=== PATIENT | female | born 1965 | race African-American/Black ===

== ENCOUNTER 2018-05-11 23:52 | Emergency (ER) | payer MEDICARE, OTHER ==
[~2018-05-11] VITALS: Ht 167.6 cm; Wt 102.3 kg
[~2018-05-11 23:52] MED LIST: CLOT30CR24 TOP; DENIES
[2018-05-11 23:57] VITALS: Ht 167.6 cm; Wt 102.3 kg
--- NOTE | 2018-05-12 04:17 | PSY ---
Date/Time of Note Date/Time of Note DATE: 05/12/18 TIME: 04:03 Psychiatric Subjective Eval Consent Pt consented to telemedicine: Yes Subjective Evaluation Patient location: emergency Chief Complaint: BIB RA81,from [facility],depression,anxiety,SOB,denies SI/HI Medical history Problems Medical Problems: (1) Patient left without being seen Status: Acute (2) Proc/trtmt not crd out d/t pt lv bef seen by [facility] care prov Status: Acute (3) Tinea Status: Acute Allergies: Coded Allergies: No Known Drug Allergies (Verified Allergy, Mild, 02/02/12) Assessment and Plan Recommendation/Plan Discharge Disposition: Community (home) Legal Status: Voluntary Assessment Additional comments: IDENTIFYING INFORMATION: 52 year old Female patient who is currently located at the hospital and for whom psychiatric consultation was requested. SOURCES OF INFORMATION: The patient who appears to be reliable and the medical records; the nursing staff. Nancy, [facility] and board design engineer, was called [phone] at 4:10 am x2. there was no response. CHIEF COMPLAINT: "anxiety". HISTORY OF PRESENT ILLNESS: The patient was interviewed via telemedicine in the presence of and under the supervision of nursing staff of the hospital. The consent to conducting this interview via telemedicine was obtained by the nursing staff at the hospital. AGUSTIN Bakrer reports that the patient presented with depressed mood, anxiety, SOB. Presents with SOB and anxiety. The patient reports having depressed at times, partial anhedonia. The patient reports that she sleeps a lot because she is being overmedicated. The patient denies having insomnia, low appetite, SI, HI, delusions, AH, VH. The patient denies using alcohol heavily or regularly. The patient denies using any other substances. In terms of past psychiatric history, the patient reports having a history of past psychiatric hospitalizations . The patient reports having a history of no past suicide attempts. Sees a psychiatrist, but does not remember his name. PAST MEDICAL HISTORY: none. CURRENT MEDICATIONS: depakote, haldol, cogentin- unknown medication dosages. ALLERGIES TO MEDICATIONS: NKDA. LABORATORY TESTS: pending. SOCIAL HISTORY: lives at [facility], 2 kids, single, on disability, no access to firearms. REVIEW OF SYSTEMS: Constitutional (e.g., fever, weight loss): negative; Eyes, Ears, Nose, Mouth, Throat: negative; Cardiovascular: negative; Respiratory: negative; Gastrointestinal: negative; Genitourinary: negative; Musculoskeletal: negative; Integumentary (skin and/or breast): negative; Neurological: negative; Psychiatric: as per HPI; Endocrine: negative; Hematologic/Lymphatic: negative; Allergic/Immunologic: negative. MENTAL STATUS EXAMINATION: General Appearance and Behavior: Calm, cooperative with the interview, pleasant with the current interviewer, makes good eye contact, well-groomed, no abnormal movements noted. Speech: Regular rate, regular rhythm, normal latency, normal volume, normal amount. Flow of thought: sequential, logical, goal-directed. Content of thought: no auditory hallucinations, no visual hallucinations, no delusions, no suicidal ideation; the patient is future-oriented, no homicidal ideation. Mood: "okay" Affect: mildly dysthymic, somewhat restricted range. Attention: normal based on the interview. Insight: good. Judgment: good. Memory: normal based on the interview. Sensorium: alert and oriented to person, place and date. ASSESSMENT: The patient's presentation and history are consistent with the diagnosis of unspecified psychotic disorder. the patient presents with anxiety and shortness of breath. She is feeling better now in terms of anxiety. the patient likely suffers from a chronic psychotic disorder. She has been compliant with her medications lately and does not appear to be experiencing an exacerbation of psychosis. the patient is not in a major depressive episode at this time. No evidence of nara, hypomania on exam. PLAN: - Medication management: Would continue all medications for now. The patient has an outpatient psychiatrist who she sees regularly. Unfortunately I was unable to obtain a home medication list with the dosages included. I attempted to call your board and care to obtain such a lisp but no one is answering at this time. - Labs: Please check Alcohol level, UDS, Depakote level. please call back with a Depakote level to to evaluate the possibility for medication adjustments. - Psychotherapy: Provided supportive psychotherapy and psychoeducation. - social work: please request from social work to call the patient's residence to ensure the patient is at a safe living environment and to obtain collateral information regarding the patient's mental health state. - Disposition: If the patient's alcohol level is above the legal limit, then please reconsult psychiatry to determine disposition once the patient's alcohol level is below the legal limit. If the patient's alcohol level comes back below the legal limit, then the patient is appropriate for the outpatient level of care at this time from a psyc hiatric perspective. The patient is not an imminent danger to self or others. The patient is motivated for outpatient treatment. The patient agrees to be compliant with outpatient follow-up appointments and pharmacotherapy as indicated. Would recommend that the patient follows up with a psychiatrist. Resources for outpatient follow-up will be provided by the hospital staff. The patient's risk for completed suicide is moderate in comparison to the general population. Risk factors include marital status, psychotic disorder, fair social support. Protective factors include race, gender, age,absence of substance use disorder, bipolar disorder, major depressive disorder, anxiety disorder, personality disorder, no access to firearms, no history of past suicide attempts, no major chronic medical problems, access to care. The patient's risk for completed suicide cannot be modified more effectively with inpatient admission at this time. The patient is not an imminent danger to self or others at this time and does not meet the legal criteria for involuntary admission. Risks, benefits, alternatives were discussed and the patient provided informed consent to proceed with the above plan. Discussed about the above plan with Dr. Ott. ROBERTO HOWELL MD May 12, 2018 04:13
[2018-05-12 04:20] VITALS: BP 149/92; PULSE 96; RESP 18
--- NOTE | 2018-05-12 04:28 | ERD ---
ER Documentation Chief Complaint Chief Complaint BIB RA81,from B&C,depression,anxiety,SOB,denies SI/HI HPI Is a 52-year-old female brought in from [facility] with complaints of depression and anxiety. She denies suicidal homicidal ideation. She denies auditory or visual hallucinations. She denies any other current complaints. She said she is been very very anxious and depressed lately. She is on medication for this but does not remember the names of the doses. ROS All systems reviewed and are negative except as per history of present illness. Medications Home Meds Active Scripts Clotrimazole* (Clotrimazole* AF) 1% - 30 Gm Cream.gm., 1 APPLIC TOP BID for 7 Days, TUB Prov:MANOHAR BASS PA-C 05/15/15 Reported Medications [Denies] No Conflict Check 01/04/11 Allergies Allergies: Coded Allergies: No Known Drug Allergies (Verified Allergy, Mild, 02/02/12) PMhx/Soc History of Surgery: No Anesthesia Reaction: No Hx Neurological Disorder: No Hx Respiratory Disorders: No Hx Cardiac Disorders: No Hx Psychiatric Problems: No Hx Miscellaneous Medical Probl: No Hx Alcohol Use: No Hx Substance Use: No Hx Tobacco Use: No Physical Exam Vitals Vital Signs Date Temp Pulse Resp B/P (MAP) Pulse Ox O2 O2 Flow FiO2 Time Delivery Rate 05/11/18 98.0 95 18 126/76 94 23:57 (93) Physical Exam Const: No acute distress Head: Atraumatic Eyes: Normal Conjunctiva ENT: Normal External Ears, Nose and Mouth. Neck: Full range of motion. No meningismus. Resp: Clear to auscultation bilaterally Cardio: Regular rate and rhythm, no murmurs Abd: Soft, non tender, non distended. Normal bowel sounds Skin: No petechiae or rashes Back: No midline or flank tenderness Ext: No cyanosis, or edema Neur: Awake and alert Psych: Normal Mood and Affect Procedures/MDM Emergency department course: Patient seen and evaluated triage was placed in bed from evaluation was evaluated by telemetry psychiatry. Medical decision making: Patient's behavioral symptoms have stabilized while in the department. Patient is medically cleared and appropriate for psychiatric evaluation and work up. No e/o neurologic, toxic, infectious, or metabolic cause. Found to be stable for outpatient management by telemetry psychiatry which I agree with. Patient will be discharged home to follow-up with primary care physician. Departure Diagnosis: Primary Impression: Depression Depression Type: unspecified Qualified Codes: F32.9 - Major depressive disorder, single episode, unspecified Condition: Stable Patient Instructions: Depression UBALDO RILEY May 12, 2018 04:28
== END 2018-05-12 04:30 | disposition home or self-care (01) ==
LOC: E/R 23:52
DX: F32.9 Major depressive disorder, single episode, unspecified (principal)
CPT/HCPCS: 36415; 80053; 80307; 81003; 84703; 85025; 99283

== ENCOUNTER 2018-06-15 16:36 | Emergency (ER) | payer MEDICARE, OTHER ==
[~2018-06-15] VITALS: Ht 167.6 cm; Wt 114.8 kg
[2018-06-15 16:38] VITALS: Ht 167.6 cm; Wt 114.8 kg
[2018-06-15] MEDS ORDERED: IBUP-1542 PO (17:36)
[2018-06-15] MEDS ORDERED: ALPR2TAB PO (17:36)
[2018-06-15] MEDS ORDERED: DIVA-48 PO (17:37)
[2018-06-15] MEDS ORDERED: HALO5TAB23 PO (18:00)
[2018-06-15] MEDS ORDERED: PALI234D IM (18:02)
[2018-06-15] MEDS ORDERED: APIXABAN 5 MG TABLET PO ONE (18:30)
[2018-06-15] MEDS ORDERED: RIVAROXABAN 20 MG TABLET PO ONE (18:30)
[2018-06-15] MEDS ORDERED: APIX5TAB PO (18:31)
--- NOTE | 2018-06-15 18:33 | ERD ---
ER Documentation Chief Complaint Chief Complaint Sent by Clinic to "confirm there is a blood clot in right leg" HPI This is a 52-year-old female who went to an urgent care 5 days ago. She was found to have a DVT on an ultrasound that was done 5 days ago they just told her the report today. She had some swelling in the calf with pain and she was told to go to the ER. She is not having any shortness of breath or chest pain. ROS All systems reviewed and are negative except as per history of present illness. Medications Home Meds Active Scripts Apixaban* (Eliquis*) 5 Mg Tablet, 10 MG PO BID for 7 Days, #74 TAB 1 Refill After 7 days, is 5 mg (1 tablet) po BID Prov:RODOLFO KESSLER DO 06/15/18 Reported Medications Paliperidone Palmitate (Invega Sustenna) 234 Mg/1.5 Ml Disp.syrin, 234 MG IM ONCE, SYR 06/15/18 Haloperidol* (Haldol*) 5 Mg Tab, 5 MG PO DAILY, TAB 06/15/18 Divalproex Sodium* (Depakote*) 500 Mg Tablet.dr, 1000 MG PO QHS, #120 TAB 06/15/18 Alprazolam* (Xanax*) 2 Mg Tablet, 2 MG PO BID PRN for ANXIETY, TAB 06/15/18 Ibuprofen* (Ibuprofen*) 600 Mg Tablet, 600 MG PO NEEDED, TAB 06/15/18 Discontinued Reported Medications [Denies] No Conflict Check 01/04/11 Discontinued Scripts Clotrimazole* (Clotrimazole* AF) 1% - 30 Gm Cream.gm., 1 APPLIC TOP BID for 7 Days, TUB Prov:MANOHAR BASS PA-C 05/15/15 Allergies Allergies: Coded Allergies: No Known Drug Allergies (Verified Allergy, Mild, 06/15/18) PMhx/Soc History of Surgery: No Anesthesia Reaction: No Hx Neurological Disorder: No Hx Respiratory Disorders: No Hx Cardiac Disorders: No Hx Psychiatric Problems: Yes (depression, anxiety, BiPolar/pschizophrenia) Hx Miscellaneous Medical Probl: No Hx Alcohol Use: No Hx Substance Use: No Hx Tobacco Use: No Smoking Status: Never smoker FmHx Family History: No coronary disease Physical Exam Vitals Vital Signs Date Temp Pulse Resp B/P (MAP) Pulse Ox O2 O2 Flow FiO2 Time Delivery Rate 06/15/18 97.9 81 18 160/98 97 16:38 (118) Physical Exam Const: Well-developed, well-nourished Head: Atraumatic, normocephalic Eyes: Normal Conjunctiva, PERRLA, EOMI, normal sclera, no nystagmus ENT: Normal External Ears, Nose and Mouth, moist mucus membranes. Neck: Full range of motion. No meningismus, no lymphadenopathy. Resp: Clear to auscultation bilaterally, no wheezing, rhonchi, rales Cardio: Regular rate and rhythm, no murmurs, S1 S2 present Abd: Soft, non tender x 4, non distended. Normal bowel sounds, no guarding or rebound, no pulsitile abdominal masses or bruits Skin: No petechiae or rashes, no ecchymosis , no maculopapular rash Back: No midline or flank tenderness Ext: No cyanosis, or edema, FROM x 4, normal inspection, neurovascularly intact x 4 some mild swelling behind the right knee and calf that is tender Neur: Awake and alert, STR 5/5 x 4, sensation intact x 4, no focal findings, cerebellum intact Psych: Normal Mood and Affect Results 24 hrs Current Medications Medications Dose Sig/Jose Start Time Status Last (Trade) Ordered Route PRN Stop Time Admin Dose Reason Admin Rivaroxaban 20 mg ONCE ONCE 06/15/18 Cancel (Xarelto) PO 18:30 06/15/18 18:31 Apixaban 10 mg ONCE ONCE 06/15/18 DC (Eliquis) PO 18:30 06/15/18 18:31 Procedures/MDM MR #: [id number] DOS: 06/15/18 1652 Ordering MD: RODOLFO KESSLER DO Location: E/R Room/Bed: PROCEDURE: US Lower extremity Venous. CLINICAL INDICATION: Right lower extremity swelling. Deep venous thrombosis. TECHNIQUE: Multiple sonographic images of the right lower extremity deep venous system were obtained utilizing grayscale, color-flow, compressive sonography and doppler imaging with augmentation. The images were reviewed on a PACS workstation. COMPARISON: None. FINDINGS: There is normal compressibility and flow within the right common femoral, deep femoral, and superficial femoral veins. There is occlusive thrombus in the popliteal vein.. The deep veins of the calf were incompletely visualized. IMPRESSION: Acute occlusive deep venous thrombosis right popliteal vein. .Ar Bender MD, Date Time Electronically viewed and signed by .Ar Bender MD, on 06/15/2018 17:13 .A/ CC: RODOLFO KESSLER DO [id number] Patient has DVT and we will give her a dose of Eliquis here and discharge her home with Eliquis prescription and follow-up with her primary Departure Diagnosis: Primary Impression: DVT (deep vein thrombosis) in Condition: Stable Patient Instructions: Dvt RODOLFO KESSLER DO Jun 15, 2018 18:33
[2018-06-15 18:50] VITALS: BP 118/60; PULSE 75; RESP 16
== END 2018-06-15 18:51 | disposition home or self-care (01) ==
LOC: E/R 16:36
DX: I82.409 Acute embolism and thrombosis of unspecified deep veins of unspecified lower extremity (principal)
CPT/HCPCS: 93971

== ENCOUNTER 2018-07-19 10:45 | Emergency (ER) | payer MEDICARE, OTHER ==
[~2018-07-19] VITALS: Ht 167.6 cm; Wt 118.6 kg
[~2018-07-19 10:45] MED LIST changes: +ALPR2TAB PO; +APIX5TAB PO; -CLOT30CR24 TOP; -DENIES; +DIVA-48 PO; +HALO5TAB23 PO; +IBUP-1542 PO; +PALI234D IM
[2018-07-19 10:56] VITALS: Ht 167.6 cm; Wt 118.6 kg
[2018-07-19] MEDS ORDERED: DOCU-144 PO (13:59)
[2018-07-19] MEDS ORDERED: FER325 PO (13:59)
[2018-07-19] MEDS ORDERED: MEDR10TA2 PO (14:00)
[2018-07-19 14:12] VITALS: BP 142/80; PULSE 90; RESP 18
--- NOTE | 2018-07-19 14:25 | ERD ---
ER Documentation Chief Complaint Chief Complaint vag bleed x 1 week HPI Patient is a 52-year-old female with past medical history of right lower extremity DVT, currently on Eliquis, depression, anxiety, bipolar/schizophrenia, who presents the ER for concerns of vaginal bleeding x1 week. Patient states "my period is overflowing". Patient reports using 4-5 pads per day. Patient denies any blood clot passage. Patient denies any lightheadedness or dizziness. Patient denies any fevers or chills. Patient states she does not have an QUILLER HAND. Patient states her primary care physician is on [employer] and denies however she does not recall the name of her doctor. Patient states his doctor is managing her Eliquis. Patient denies any abdominal pain, chest pain, shortness of breath or LOC. ROS All systems reviewed and are negative except as per history of present illness. Medications Home Meds Active Scripts Medroxyprogesterone Acetate* (Provera*) 10 Mg Tablet, 10 MG PO DAILY, #5 TAB Prov:OMER BARRERA PA-C 07/19/18 Docusate Sodium* (Colace*) 100 Mg Capsule, 100 MG PO BID, #30 CAP Prov:OMER BARRERA PA-C 07/19/18 Ferrous Sulfate* (Ferrous Sulfate*) 325 Mg Tabec, 325 MG PO BID, #30 TAB Prov:OMER BARRERA PA-C 07/19/18 Apixaban* (Eliquis*) 5 Mg Tablet, 10 MG PO BID for 7 Days, #74 TAB 1 Refill After 7 days, is 5 mg (1 tablet) po BID Prov:RODOLFO KESSLER DO 06/15/18 Reported Medications Paliperidone Palmitate (Invega Sustenna) 234 Mg/1.5 Ml Disp.syrin, 234 MG IM ONCE, SYR 06/15/18 Haloperidol* (Haldol*) 5 Mg Tab, 5 MG PO DAILY, TAB 06/15/18 Divalproex Sodium* (Depakote*) 500 Mg Tablet.dr, 1000 MG PO QHS, #120 TAB 06/15/18 Alprazolam* (Xanax*) 2 Mg Tablet, 2 MG PO BID PRN for ANXIETY, TAB 06/15/18 Ibuprofen* (Ibuprofen*) 600 Mg Tablet, 600 MG PO NEEDED, TAB 06/15/18 Allergies Allergies: Coded Allergies: No Known Drug Allergies (Verified Allergy, Mild, 06/15/18) PMhx/Soc Medical and Surgical Hx: pt denies Surgical Hx History of Surgery: No Anesthesia Reaction: No Hx Neurological Disorder: No Hx Respiratory Disorders: No Hx Cardiac Disorders: No Hx Psychiatric Problems: Yes (depression, anxiety, BiPolar/pschizophrenia) Hx Miscellaneous Medical Probl: No Hx Alcohol Use: No Hx Substance Use: No Hx Tobacco Use: No Smoking Status: Never smoker FmHx Family History: No diabetes Physical Exam Vitals Vital Signs Date Temp Pulse Resp B/P (MAP) Pulse Ox O2 O2 Flow FiO2 Time Delivery Rate 07/19/18 98.1 81 18 128/67 97 10:56 (87) Physical Exam GENERAL: Well-developed, well-nourished female. Appears in no acute distress. Speaking in full sentence. HEAD: Normocephalic, atraumatic. EYES: Pupils are equally reactive bilaterally. EOMs grossly intact. No con junctival erythema. ENT: Moist mucous membranes. No uvula deviation. No kissing tonsils. NECK: Supple. No meningismus. Normal range of motion of the neck. LUNG: Clear to auscultation bilaterally. No rhonchi, wheezing, rales or coarse breath sounds. HEART: Regular rate and rhythm. No murmurs, rubs or gallops. ABDOMEN: Soft, nontender, and nondistended. No rebound tenderness, no guarding. (-) McBurney's point tenderness. No CVA tenderness. BACK: No midline tenderness. EXTREMITIES: Equal pulses bilaterally. No peripheral clubbing, cyanosis or edema. No unilateral leg swelling. NEUROLOGIC: Alert and oriented. Moving all four extremities without any difficulty. Normal speech. Steady gait. SKIN: Normal color. Warm and dry. No rashes or lesions. Result Diagram: 07/19/18 1150 07/19/18 1150 Results 24 hrs Laboratory Tests Test 07/19/18 11:50 White Blood Count 7.2 10^3/ul Red Blood Count 3.83 10^6/ul Hemoglobin 10.5 g/dl Hematocrit 33.3 % Mean Corpuscular Volume 86.9 fl Mean Corpuscular Hemoglobin 27.4 pg Mean Corpuscular Hemoglobin Concent 31.5 g/dl Red Cell Distribution Width 15.1 % Platelet Count 245 10^3/UL Mean Platelet Volume 8.9 fl Immature Granulocytes % 0.600 % Neutrophils % 76.4 % Lymphocytes % 12.5 % Monocytes % 8.2 % Eosinophils % 1.9 % Basophils % 0.4 % Nucleated Red Blood Cells % 0.0 /100WBC Immature Granulocytes # 0.040 10^3/ul Neutrophils # 5.5 10^3/ul Lymphocytes # 0.9 10^3/ul Monocytes # 0.6 10^3/ul Eosinophils # 0.1 10^3/ul Basophils # 0.0 10^3/ul Nucleated Red Blood Cells # 0.0 10^3/ul Prothrombin Time 14.0 Sec Prothrombin Time Ratio 1.1 INR International Normalized Ratio 1.07 Activated Partial Thromboplast Time 33.5 Sec Urine Color RED Urine Clarity CLOUDY Urine pH 9.0 Urine Specific [place] 1.017 Urine Ketones NEGATIVE mg/dL Urine Nitrite NEGATIVE mg/dL Urine Bilirubin NEGATIVE mg/dL Urine Urobilinogen NEGATIVE mg/dL Urine Leukocyte Esterase NEGATIVE Naheed/ul Urine Microscopic RBC > 182 /HPF Urine Microscopic WBC 129 /HPF Urine Squamous Epithelial Cells FEW /HPF Urine Bacteria FEW /HPF Urine Mucus FEW /HPF Urine Hemoglobin 3+ mg/dL Urine Glucose NEGATIVE mg/dL Urine Total Protein 2+ mg/dl Sodium Level 140 mmol/L Potassium Level 4.1 mmol/L Chloride Level 102 mmol/L Carbon Dioxide Level 34 mmol/L Anion Gap 4 Blood Urea Nitrogen 13 mg/dl Creatinine 0.86 mg/dl Est Glomerular Filtrat Rate mL/min > 60 mL/min Glucose Level 119 mg/dl Calcium Level 8.9 mg/dl Total Bilirubin 0.2 mg/dl Direct Bilirubin 0.00 mg/dl Indirect Bilirubin 0.2 mg/dl Aspartate Amino Transf (AST/SGOT) 26 IU/L Alanine Aminotransferase (ALT/SGPT) 22 IU/L Alkaline Phosphatase 95 IU/L Total Protein 7.9 g/dl Albumin 3.5 g/dl Globulin 4.40 g/dl Albumin/Globulin Ratio 0.79 Lipase 83 U/L Procedures/MDM ED COURSE: The patient was stable throughout ED course. I kept the patient and/or family informed of laboratory and diagnostic imaging results throughout the ED course. DIAGNOSTIC IMAGING: Read by radiologist. DIAGNOSTIC IMAGING REPORT Patient: GREG BOUDREAUX : 1965 Age: 52 Sex: F MR #: [id number] [facility] #: [id number] DOS: 07/19/18 1123 Ordering MD: OMER BARRERA PA-C Location: FTE Room/Bed: PROCEDURE: US Pelvis. CLINICAL INDICATION: Vaginal bleeding TECHNIQUE: Sonographic evaluation of the pelvis was performed utilizing a transabdominal technique. Images were reviewed on the high-resolution PACS workstation. COMPARISON: No prior studies are available for comparison. FINDINGS: The uterus is normal in size, echogenicity, and morphology, measuring approximately 7.7 x 5.2 x 4.8 cm. The endometrium is homogeneous and measures approximately 8.9 mm in diameter. Evaluation is somewhat limited due to lack of transvaginal imaging. The ovaries are not visualized. There are no adnexal masses. There is no significant free fluid in the pelvis. IMPRESSION: 1. Limited transabdominal only pelvic ultrasound. The endometrium is homogeneous and measures 8.9 mm in diameter. Correlation with menstrual status is required. 2. The ovaries are not visualized. RPTAT: HH .Roseanna Mcclellan MD, MD Date Time Electronically viewed and signed by .Roseanna Mcclellan MD, on 07/19/2018 13:02 .G/ CC: OMER BARRERA PA-C [id number] MEDICAL DECISION MAKING: This is a 52-year-old female with past medical history of right lower extremity DVT, currently on Eliquis, depression, anxiety, bipolar/schizophrenia, presents the ER for concerns of vaginal bleeding for the last 1 week. Vital signs were reviewed. Patient was afebrile. Patient was hemodynamically stable. Blood work is obtained. Hemoglobin level was noted to be 10.5, hematocrit of 33.3. Platelet count was within normal limits. PT/PTT/INR within normal limits. CMP showed no severe electrolyte abnormalities, acidosis, alkalosis, renal injury or liver injury. Lipase was within normal limits. UA did show positive RBCs and 3+ blood. 125 WBCs were noted however squamous cells were also noted. Patient denied any dysuria, frequency, urgency or hematuria. Patient does not feel as if she has a UTI. Urine sample is likely contaminated. Will defer treating patient at this time. Urine will be sent for culture. Pelvic ultrasound showed an endometrium was homogeneous and measures 8.9 mm in diameter. Case discussed with supervising physician Dr. Sidhu. He advised me to start the patient on Provera for [address] Sidhu, patient can remain on Eliquis. Patient was advised that she will need to follow-up with an QUILLER HAND for an endometrial biopsy on an outpatient basis. Unable to rule out malignancy at this time. At this time, patient's presentation most consistent with dysfunctional uterine bleeding. Low suspicion for ectopic , threatened , spontaneous , cervical polyp, fibroid, coagulopathy, thrombocytopenia, von Willebrand disease, idiopathic thrombocytopenic purpura, HPO axis dysfunction, polycystic ovarian syndrome. PRESCRIPTIONS: Colace, iron supplements, Provera DISCHARGE: At this time, patient is stable for discharge and outpatient management. I have instructed the patient to follow-up with his/her primary care physician in 1-2 days. I have instructed the patient to promptly return to the ER for any new or worsening symptoms including increased pain, swelling, redness, warmth or fever. The patient and/or family expressed understanding of and agreement with this plan. All questions were answered. Home care instructions were provided. Disclaimer: Inadvertent spelling and grammatical errors are likely due to EHR/dictation software use and do not reflect on the overall quality of patient care. Also, please note that the electronic time recorded on this note does not necessarily reflect the actual time of the patient encounter. Departure Diagnosis: Primary Impression: Vaginal bleeding Condition: Fair Patient Instructions: Dysfunctional Uterine Bleeding Referrals: COMMUNITY CLINICS YOU HAVE RECEIVED A MEDICAL SCREENING EXAM AND THE RESULTS INDICATE THAT YOU DO NOT HAVE A CONDITION THAT REQUIRES URGENT TREATMENT IN THE EMERGENCY DEPARTMENT. FURTHER EVALUATION AND TREATMENT OF YOUR CONDITION CAN WAIT UNTIL YOU ARE SEEN IN YOUR DOCTORS OFFICE WITHIN THE NEXT 1-2 DAYS. IT IS YOUR RESPONSIBILITY TO MAKE AN APPOINTMENT FOR FOLOW-UP CARE. IF YOU HAVE A PRIMARY DOCTOR --you should call your primary doctor and schedule an appointment IF YOU DO NOT HAVE A PRIMARY DOCTOR YOU CAN CALL OUR PHYSICIAN REFERRAL HOTLINE AT IF YOU CAN NOT AFFORD TO SEE A PHYSICIAN YOU CAN CHOSE FROM THE FOLLOWING [facility] CLINICS [facility] [address] [facility] [address] [facility] [address] [facility] [address] [facility] [phone] [address] [facility]. [facility] [address] [facility]. [facility] YOU HAVE RECEIVED A MEDICAL SCREENING EXAM AND THE RESULTS INDICATE THAT YOU DO NOT HAVE A CONDITION THAT REQUIRES URGENT TREATMENT IN THE EMERGENCY DEPARTMENT. FURTHER EVALUATION AND TREATMENT OF YOUR CONDITION CAN WAIT UNTIL YOU ARE SEEN IN YOUR DOCTORS OFFICE WITHIN THE NEXT 1-2 DAYS. IT IS YOUR RESPONSIBILITY TO MAKE AN APPOINTMENT FOR FOLOW-UP CARE. IF YOU HAVE A PRIMARY DOCTOR --you should call your primary doctor and schedule and appointment IF YOU DO NOT HAVE A PRIMARY DOCTOR YOU CAN CALL OUR PHYSICIAN REFERRAL HOTLINE AT . IF YOU CAN NOT AFFORD TO SEE A PHYSICIAN YOU CAN CHOSE FROM THE FOLLOWING [facility] INSTITUTIONS: [facility] [address] [place] [address] [facility] [address] [place] [address] [facility] [address] [place] [address] [facility] [place] [address] [facility] [address] [place], [place] [phone] OFFICE FAX [employer] [address] [place], [place] [id number] [address] D[place]SON [place] [address] [place], [place] [id number] MICHAEL ORTIZ [address] [facility], [address] [address] [address]EL[address] [place]OLDAN [address] [facility] [place] [phone] [facility] [address] [place] [address] [facility], [facility] [address] - [address] SPEARS, GREG [address] [facility] [address] [address] GONZALEZ, NATALIIA [address] [facility]. [address], [place] [address] [address] MAK, [facility] [address] [place], [place] [phone] Additional Instructions: Unable to rule out malignancy at this time. You will need an endometrial biopsy. Follow-up with an QUILLER HAND in the next 1 to 2 days. See referral information. If you develop any worsening dizziness, lightheadedness, fevers, chills, nausea, vomiting return to the ER. Call your primary care doctor TOMORROW for an appointment during the next 1-2 days.See the doctor sooner or return here if your condition worsens before your appointment time. OMER BARRERA PA-C July 19, 2018 14:21
== END 2018-07-19 14:13 | disposition home or self-care (01) ==
LOC: E/R 10:45 → FTE 14:13
DX: N93.9 Abnormal uterine and vaginal bleeding, unspecified (principal)
CPT/HCPCS: 36415; 76856; 80053; 81001; 83690; 85025; 85610; 85730; 87086

== ENCOUNTER 2018-08-17 12:05 | Emergency (ER) | payer MEDICARE, OTHER ==
[~2018-08-17] VITALS: Ht 167.6 cm; Wt 116.0 kg
[~2018-08-17 12:05] MED LIST changes: +DOCU-144 PO; +FER325 PO; +MEDR10TA2 PO
[2018-08-17 12:23] VITALS: Ht 167.6 cm; Wt 116.0 kg
--- NOTE | 2018-08-17 13:06 | ERD ---
ER Documentation Chief Complaint Chief Complaint i have heavy vaginal bleeding for 2 cycles HPI 52-year-old female, with history of menometrorrhagia's, presents to the emergency department requesting a refill for the medications given 1 month ago. The patient reports that during the last 2 cycles, the patient has been using approximately 4-6 pads per day. She denies passing big clots, no weakness, no palpitations, no shortness of breath, no lightheadedness. ROS All systems reviewed and are negative except as per history of present illness. Medications Home Meds Active Scripts Medroxyprogesterone Acetate* (Provera*) 10 Mg Tablet, 10 MG PO DAILY, #5 TAB Prov:INOCENCIO BANUELOS MD 08/17/18 Docusate Sodium* (Colace*) 100 Mg Capsule, 100 MG PO BID, #30 CAP Prov:INOCENCIO BANUELOS MD 08/17/18 Ferrous Sulfate* (Ferrous Sulfate*) 325 Mg Tabec, 325 MG PO BID, #30 TAB Prov:INOCENCIO BANUELOS MD 08/17/18 Apixaban* (Eliquis*) 5 Mg Tablet, 10 MG PO BID for 7 Days, #74 TAB 1 Refill After 7 days, is 5 mg (1 tablet) po BID Prov:RODOLFO KESSLER DO 06/15/18 Reported Medications Paliperidone Palmitate (Invega Sustenna) 234 Mg/1.5 Ml Disp.syrin, 234 MG IM ONCE, SYR 06/15/18 Haloperidol* (Haldol*) 5 Mg Tab, 5 MG PO DAILY, TAB 06/15/18 Divalproex Sodium* (Depakote*) 500 Mg Tablet.dr, 1000 MG PO QHS, #120 TAB 06/15/18 Alprazolam* (Xanax*) 2 Mg Tablet, 2 MG PO BID PRN for ANXIETY, TAB 06/15/18 Ibuprofen* (Ibuprofen*) 600 Mg Tablet, 600 MG PO NEEDED, TAB 06/15/18 Allergies Allergies: Coded Allergies: No Known Drug Allergies (Verified Allergy, Mild, 06/15/18) PMhx/Soc History of Surgery: No Anesthesia Reaction: No Hx Neurological Disorder: No Hx Respiratory Disorders: No Hx Cardiac Disorders: No Hx Psychiatric Problems: Yes (depression, anxiety, BiPolar/pschizophrenia) Hx Miscellaneous Medical Probl: No Hx Alcohol Use: No Hx Substance Use: No Hx Tobacco Use: No FmHx Family History: diabetes, coronary disease Physical Exam Vitals Vital Signs Date Temp Pulse Resp B/P (MAP) Pulse Ox O2 O2 Flow FiO2 Time Delivery Rate 08/17/18 97.1 90 18 127/80 96 12:23 (96) Physical Exam Const: No acute distress Head: Atraumatic Eyes: Normal Conjunctiva ENT: Normal External Ears, Nose and Mouth. Neck: Full range of motion. No meningismus. Resp: Clear to auscultation bilaterally Cardio: Regular rate and rhythm, no murmurs Abd: Soft, non tender, non distended. Normal bowel sounds Skin: No petechiae or rashes Back: No midline or flank tenderness Ext: No cyanosis, or edema Neur: Awake and alert Psych: Normal Mood and Affect Procedures/MDM Vital signs stable, Physical exam unremarkable, abdomen soft, nontender. Patient hemodynamically stable. The patient refused to give us urine for a test and also refused a pelvic exam at this time. Differential diagnosis include but not limited to: , ovarian cyst, fibroids, endometriosis, malignancy, dysfunctional bleeding, hematologic condition. Low suspicion for PID, no signs of hypovolemic shock. Physical examination and clinical presentation consistent most likely with dysfunctional uterine bleeding. During the ED course the patient remained stable, no new complaints. Results and clinical impression discussed with patient who agrees with management. The patient is stable to be treated outpatient and will be discharged home with a Rx for Provera, some side effects of prescribed medications (headache, rash, nausea, vomiting, diarrhea, drowsiness, habituation, bleeding, hypertension, interactions with other medications) were reviewed. The patient was instructed to follow up with the primary care provider in the next 48h. If symptoms persist, worsen or new symptoms develop, then patient should return to the ED immediately. Instructions explained and given directly by me to the patient with acknowledgment and demonstrated understanding. Disclaimer: Inadvertent spelling and grammatical errors are likely due to EHR/dictation software use and do not reflect on the overall quality of patient care. Also, please note that the electronic time recorded on this note does not necessarily reflect the actual time of the patient encounter. Departure Diagnosis: Primary Impression: Vaginal bleeding Condition: Stable Additional Instructions: Thank you very much for allowing us to participate in your care. Your health and safety is our top priority at [facility]. The evaluation in the emergency department has been done to rule out an acute emergency. Chronic, [id number] conditions may have not been evaluated; therefore, you need to follow up with a primary care provider in the next 48h. If symptoms persist, worsen or new symptoms develop, then patient should return to the ED immediately. Call your primary care doctor TOMORROW for an appointment during the next 2-4 days and bring all the information provided. Have prescriptions filled and follow precisely the directions on the label. If the symptoms get worse and your provider is unavailable, return to the Emergency Department immediately. INOCENCIO BANUELOS MD Aug 17, 2018 13:05
[2018-08-17] MEDS ORDERED: FER325 PO (13:07)
[2018-08-17] MEDS ORDERED: MEDR10TA2 PO (13:07)
[2018-08-17] MEDS ORDERED: DOCU-144 PO (13:07)
[2018-08-17 13:24] VITALS: BP 123/80; PULSE 77; RESP 18
== END 2018-08-17 13:26 | disposition home or self-care (01) ==
LOC: FTE 12:05
DX: N93.9 Abnormal uterine and vaginal bleeding, unspecified (principal); Z79.01 Long term (current) use of anticoagulants
CPT/HCPCS: 99283